=== PATIENT | male | born 1985 | race African-American/Black ===

== ENCOUNTER 2016-10-07 23:04 | Emergency (ER) | payer OTHER ==
--- NOTE | ~2016-10-07 | CR72 ---
[facility] A Service of [facility] RADIOLOGY TEXT RESULTS PATIENT: KENNEY CARLSON LOCATION: [facility] : 87 UNIT #: [id number] AGE: [address]: Serena Pugh MD SEX: M ORDER DR: [id number] [facility] [address] [place], [place] [address] [id number] MR#: [id number] Acc #: [id number] NAME: KENNEY CARLSON : 1985 SEX: M STUDY DATE/TIME: 10/07/2016 22:33 UNIT: [facility] ROOM: STUDY DESCRIPTION: CR Chest Single View Portable Attending Physician: Serena Pugh M.D. Ordering Physician: Serena Pugh M.D. Primary Care Physician: Primary Care Physician No MEDICAL IMAGING REPORT This report is preliminary unless electronic signature is present EXAM Portable chest x-ray, 10/07/2016 HISTORY Cough. Fever. Chest tightness, cough, fever body aches, began 4 days ago. Smoker 10 years. Chest tightness, body aches. FINDINGS AP radiograph of the chest is presented. No comparisons. Heart udcdus-ah-pojho limits of normal in size. Mediastinal contour is normal. The lungs are well inflated with no evidence of acute pulmonary disease. No pleural effusion or pneumothorax. No suspicious nodule. Bony structures unremarkable. Visualized upper abdomen normal. Dictated by... Jarrell Ponce M.D. THIS IS AN ELECTRONICALLY VERIFIED REPORT Jarrell Ponce M.D. at 10/13/2016 5:59 PM RAFAL/hung TD: 10/07/2016 23:35 JOB #: [id number] MEDICAL IMAGING REPORT Page 1 of 1 COPY
[2016-10-07 21:56] LABS: INFLUENZA A NEG (NEG); INFLUENZA B NEG (NEG)
[2016-10-07 22:59] LABS: BASOPHIL% 0.4 % (0-2.5); EOSINOPHIL# 0.3 X10e3 (0-0.7); EOSINOPHIL% 5.2 % (0.0-7.0); HEMATOCRIT 45.8 % (38.0-50.0); HEMOGLOBIN 14.7 gm/dL (13.0-16.0); LYMPHOCYTE# 1.2 X10e3 (1.0-3.5); LYMPHOCYTE% 18.5 % (17.0-45.0); MEAN CELL VOLUME 93.8 FL (83-96); MEAN CORPUSCULAR HEMOGLOBIN 30.2 PG (28-34); MEAN CORPUSCULAR HGB CONC 32.2 g/dL (30-36); MEAN PLATELET VOLUME 9.2 FL (6.5-11.5); MONOCYTE# 1.2 X10e3 (0-1.0); MONOCYTE% 18.6 % (3.0-12.0); NEUTROPHIL# 3.7 X10e3 (1.5-7.1); NEUTROPHIL% 57.3 % (40-75); PLATELET COUNT 173 X10e3 (140-420); RED BLOOD COUNT 4.89 X10e (3.90-5.60); RED CELL DISTRIBUTION WIDTH 13.9 % (11.0-15.5); WHITE BLOOD COUNT 6.4 X10e3 (4.0-10.5)
[2016-10-07 23:00] LABS: DIFF IND NO
[2016-10-07 23:02] LABS: URINE SOURCE CLEAN CATCH
[2016-10-07 23:06] LABS: URINE BILIRUBIN NEG (NEG); URINE BLOOD NEG (NEG); URINE COLOR DK YELLOW; URINE GLUCOSE NEG (NEG); URINE KETONE TRACE (NEG); URINE LEUKOCYTE ESTERASE NEG (NEG); URINE NITRATE NEG (NEG); URINE PROTEIN TRACE (NEG); URINE SPECIFIC GRAVITY 1.036 (1.003-1.035)
[2016-10-07 23:10] LABS: CULTURE INDICATED? NO; URINE APPEARANCE CLEAR
[2016-10-07 23:23] LABS: ALBUMIN SERUM 3.9 g/dL (3.5-5.0); ALKALINE PHOSPHATASE 56 U/L (32-92); ALT (SGPT) 40 U/L (10-40); AST (SGOT) 40 U/L (10-42); BILIRUBIN, DIRECT <0.1 mg/dL (0.0-0.2); BILIRUBIN,INDIRECT 0.2 mg/dL (0.0-0.9); BILIRUBIN,TOTAL 0.3 mg/dL (0.2-2.0); BLOOD UREA NITROGEN 14 mg/dL (9-23); BUN/CREATININE RATIO 10.76; CALCIUM SERUM 8.8 mg/dL (8.4-10.2); CARBON DIOXIDE 26 mmol/L (22-31); CHLORIDE 103 mmol/L (100-111); CREATININE SERUM 1.3 mg/dL (0.6-1.4); GLOM FILT RATE Estimated 84.9 mL/min (>60); GLUCOSE FASTING 98 mg/dL (70-110); POTASSIUM 3.6 mmol/L (3.5-5.1); PROTEIN TOTAL SERUM 6.9 g/dL (6.0-8.3); SODIUM 136 mmol/L (135-145)
== END 2016-10-08 02:30 | disposition home or self-care (01) ==
LOC: CED 23:04
PROVIDERS: Emergency Medicine
DX: R50.9 Fever, unspecified (principal); M79.1 Myalgia; R11.2 Nausea with vomiting, unspecified; R19.7 Diarrhea, unspecified; B20 Human immunodeficiency virus [HIV] disease; F17.210 Nicotine dependence, cigarettes, uncomplicated; Z88.1 Allergy status to other antibiotic agents
CPT/HCPCS: 71010; 80048; 80076; 81003; 85025; 87804; 96361; 96374; 99284; J1885